=== PATIENT | male | born 1995 | race Caucasian/White ===

== ENCOUNTER 2017-07-24 14:41 | Emergency (ER) | payer OTHER ==
[~2017-07-24] VITALS: Ht 157.5 cm; Wt 51.2 kg
[2017-07-24 14:43] VITALS: BP 133/91
== END 2017-07-24 18:00 | disposition home or self-care (01) ==
LOC: ED 14:41
DX: H61.21 Impacted cerumen, right ear (principal); R03.0 Elevated blood-pressure reading, without diagnosis of hypertension

== ENCOUNTER 2018-07-06 13:45 | Emergency (ER) | payer OTHER ==
[~2018-07-06] VITALS: Ht 160 cm; Wt 52.2 kg
[2018-07-06 13:54] VITALS: Ht 160 cm; Wt 52.2 kg
[2018-07-06 14:30] LABS: UA SPECIFIC GRAVITY 1.025 (1.005-1.035); microscopic required? YES; urine erythrocyte 2+ (NEGATIVE)
[2018-07-06 16:22] VITALS: BP 115/68
== END 2018-07-06 16:22 | disposition home or self-care (01) ==
LOC: ED 13:45
PROVIDERS: Emergency Medicine
DX: N50.3 Cyst of epididymis (principal); Z98.890 Other specified postprocedural states
CPT/HCPCS: 87491; 87591; J1885; Q0092